=== PATIENT | male | born 1940 | race Caucasian/White ===

== ENCOUNTER → 2016-05-18 | Outpatient (CLI) | payer OTHER | END | disposition home or self-care (01) | LOC: RAD 13:48 | PROVIDERS: ATTEND Urology | DX: N20.1 Calculus of ureter (principal) ==

== ENCOUNTER → 2016-05-20 | Outpatient (CLI) | payer OTHER ==
--- NOTE | 2016-05-20 16:54 | RAD ---
EXAM DESCRIPTION: FL INTRAVENOUS PYELOGRAM (IVP) CLINICAL HISTORY: 75 y/o M, N20.1, CALCULUS OF URETER COMPARISON: None. FINDINGS: The servicenow administrator developer image shows several small left renal calculi, largest measuring approximately 9 mm diameter in the inferior pole. There are multiple small pelvic calcifications which probably represent phleboliths. Following IV contrast administration, bilaterally symmetric nephrograms are noted. The kidneys are of normal size, contour and alignment. Bilateral renal contrast excretion is noted without collecting system dilation or filling defect. All of the pelvic calcifications are outside of the distal ureters. No ureteral stricture is seen. No bladder filling defect is identified. A postvoid image shows a small amount of residual postvoid contrast in the bladder. IMPRESSION: Left-sided nephrolithiasis, but no ureterolithiasis or hydroureteronephrosis. Electronically signed by: Dov Bliss DO 05/20/2016 16:52
== END | disposition home or self-care (01) ==
LOC: RAD 08:41
PROVIDERS: ATTEND Urology
DX: N20.1 Calculus of ureter (principal)

== ENCOUNTER → 2016-12-01 | Outpatient (CLI) | payer OTHER ==
--- NOTE | 2016-12-02 09:29 | CT ---
EXAM DESCRIPTION: Abdoment/Pelvis w/o Contrast CLINICAL HISTORY: CALCULUS OF KIDNEY COMPARISON: March 29, 2016 TECHNIQUE: Noncontrast transaxial CT images of the abdomen and pelvis are obtained using renal stone imaging protocol. This exam was performed according to our departmental dose-optimization program, which includes automated exposure control, adjustment of the mA and/or kV according to patient size and/or use of iterative reconstruction technique . FINDINGS: Visualized lung bases shows enlarged heart with sternotomy wires are identified. Enlarged liver with diffuse fatty infiltration is again seen. Extensive cholelithiasis is seen without evidence of biliary tract obstruction. Noncontrast appearance of the spleen, pancreas, and adrenal glands is unremarkable. Moderate atherosclerotic disease is seen. There is a stable 2.1 cm hyperdense lesion on the anterior mid to upper pole cortex of the right kidney. Fluid attenuation cortical cyst of the lower pole left kidney measuring 2.7 cm is seen. Posterior mid pole fluid attenuation 2.2 cm cyst of the left kidney is seen. Nonobstructing 2 to 3 mm calcification of a posterior mid pole calyx of the right kidney is not seen on previous exam. No right ureteral calcification or obstruction. Multiple nonobstructing calcifications of the calyces in the left kidney are seen. The largest in the major calyx of the mid to lower pole measures 10 mm stable from previous. No ureteral calcification or obstruction is seen. Urinary bladder is contracted and not well evaluated. Prostate calcifications are seen. The appendix is not well identified. No small bowel obstruction is seen. Mild scattered diverticuli of the descending to sigmoid colon are seen without associated inflammatory changes or fluid collections. Small bilateral fat-containing inguinal hernias are seen. Osseous structures show no aggressive bony lesions. Hypertrophic bridging marginal endplate osteophytes over multiple level suggesting diffuse idiopathic skeletal hyperostosis. Moderate to severe degenerative changes of the spine are seen. IMPRESSION: Nonobstructing left greater than right nephrolithiasis is again seen. There has been interval resolution of the right distal ureteral calcification seen on previous exam. Simple renal cortical cysts with probable complex hyperdense lesion of the right kidney is unchanged from previous exam. Colon diverticulosis without CT evidence of diverticulitis. Extensive cholelithiasis is seen. Other findings as described in body of the report. Electronically signed by: Madhu Norris MD 12/02/2016 9:27 AM CDT
== END | disposition home or self-care (01) ==
LOC: CT 08:55
PROVIDERS: ATTEND Urology
DX: M24.9 Joint derangement, unspecified (principal); N20.0 Calculus of kidney

== ENCOUNTER 2016-12-21 06:43 | Emergency (ER) | payer OTHER ==
[2016-12-21] MEDS ORDERED: KETOROLAC TROMETHAMINE INJ 30 MG/ML VIAL IV ONE (07:05)
[2016-12-21] MEDS ORDERED: SODIUM CHLORIDE 0.9% 1000ML 1,000 ML IVS ONE ×2 (07:05→08:21)
--- NOTE | 2016-12-21 07:08 | ED.PDOC ---
History of Present Illness - General Chief Complaint: Back Pain or Injury Stated Complaint: low back pain Time Seen by Provider: 12/21/16 07:00 Source: patient, RN notes reviewed, Vital Signs reviewed, family - son, old records - 12/01/16 Abd/Pelvis CT: multiple non-obstructing renal stones L>R Exam Limitations: no limitations - History of Present Illness Initial Comments: Patient comes in with c/o of left flank pain that started yesterday. No radiation of pain. + urinary frequency and dysuria. No fever or chills. No nausea/vomiting or diarrhea. Recently seen for a kidney stone on the right. Taking Tylenol #3 w/o relief. Timing/Duration: 7-24 hours Quality/Severity: severe, dullness, sharpness Back Pain Location: other - L flank Back Pain Radiation: other - None Method of Injury/Prior Injury: unknown Improving Factors: nothing Worsening Factors: movement - any movement but also can't get comfortable Associated Symptoms: denies symptoms Allergies/Adverse Reactions: Allergies NO KNOWN ALLERGY Allergy (Verified 02/06/16 18:50) Home Medications: Ambulatory Orders Aspirin [Aspirin Adult Low Dose] 81 mg PO DAILY 02/06/16 Gabapentin [Neurontin] 900 mg PO TID 02/06/16 Metoprolol Tartrate [Lopressor] 25 mg PO BID 02/06/16 Potassium Chloride [K-Tab] 10 meq PO TID 02/06/16 Tamsulosin [Flomax] 0.4 mg PO BEDTIME #20 cap 02/06/16 Tramadol HCl [Ultram] 50 mg PO QID PRN #20 tab 02/06/16 Review of Systems - Review of Systems Constitutional: States: no symptoms reported. Denies: chills, diaphoresis, fever EENTM: States: no symptoms reported Respiratory: States: no symptoms reported. Denies: cough, short of breath Cardiology: Denies: no symptoms reported Gastrointestinal/Abdominal: States: see HPI - L flank pain. Denies: constipation, diarrhea, nausea, vomiting Genitourinary: States: see HPI, dysuria, frequency, pain - L flank Musculoskeletal: States: see HPI, back pain Skin: States: see HPI Neurological: States: no symptoms reported All other Systems: No Change from Baseline Past Medical History (General) - Patient Medical History Hx Seizures: No Hx Stroke: No Hx Asthma: No Hx of COPD: No Hx Cardiac Disorders: Yes - IN Hx Congestive Heart Failure: No Hx Pacemaker: No Hx Hypertension: Yes Hx Diabetes: No Hx Renal Disease: Yes - stones, prostate CA Hx Cancer: Yes - Prostate CA with tx Hx Hepatitis C: No Hx MRSA: No Surgical History: other - Vaccination History Hx Tetanus, Diphtheria Vaccination: No Hx Influenza Vaccination: No Hx Pneumococcal Vaccination: No - Social History Hx Tobacco Use: No Hx Alcohol Use: No Hx Substance Use: No Hx Substance Use Treatment: No Hx Depression: No Hx Physical Abuse: No Hx Emotional Abuse: No - Female History Patient : No Family Medical History - Family History Mother Family History: No Known Age (years): 78 Cause of : heart attack Hx Family Asthma: No Hx Family Congestive Heart Failure: Yes Hx Family Hypertension: No Hx Family Stroke: No Hx Cardiac Disease: Yes Hx Family Diabetes: No Hx Family Cancer: No Physical Exam - Physical Exam General Appearance: Alert, No apparent distress, Well Developed, Well Groomed, Well Hydrated, Well Nourished, Other - in pain Neck Exam: non-tender, full range of motion, normal alignment, normal inspection Cardiovascular/Respiratory: regular rate, rhythm, no M/R/G, normal breath sounds , no respiratory distress Gastrointestinal/Abdominal: normal bowel sounds, soft, no organomegaly, tenderness - LUQ and L mid abdomen w/o guarding or rebound Back Exam: CVA tenderness (L) Extremity Exam: no evidence of injury Neurologic: alert, normal mood/affect, oriented x 3 Skin Exam: normal color, warm/dry Comments: Vital Signs 12/21/16 12/21/16 06:56 07:01 Temperature 98.1 F Pulse Rate [ 51 L left] Respiratory 18 18 Rate Blood Pressure 184/82 [left] O2 Sat by Pulse 93 L Oximetry Progress - Progress Progress: 12/21/16 09:07 Patient pain free after Toradol 30mg IV and Dilaudid 1mg IV 2L NS bolus given Patient just had a CT scan on 12/02/15 that showed renal stones. Now has symptoms consistent with a ureteral stone with hematuria. Will treat as kidney stone instead of getting another CT scan. Patient is agreeable with plan. Has pain medicine at home so will d/c home with urine strainer and instructions to increase his water intake and follow up with PCP or Urologist is stone does not pass w/in 1 week or if symptoms worsen. - Results/Orders Results/Orders: Laboratory Tests 12/21/16 12/21/16 12/21/16 07:15 07:15 07:53 WBC 9.7 RBC 6.01 Hgb 18.2 H Hct 55.0 H MCV 91.4 MCH 30.2 MCHC 33.1 RDW 14.7 H Plt Count 99 L MPV 8.7 Absolute Neuts (auto) 7.90 H Absolute Lymphs (auto) 1.00 Absolute Monos (auto) 0.80 Absolute Eos (auto) 0.10 Absolute Basos (auto) 0.10 Neutrophils % 81.2 H Lymphocytes % 9.9 L Monocytes % 7.8 Eosinophils % 0.6 L Basophils % 0.5 Sodium 137 Potassium 4.5 Chloride 105 Carbon Dioxide 24 Anion Gap 12.5 BUN 30 H Creatinine 1.34 H BUN/Creatinine Ratio 22.4 H Random Glucose 121 H Serum Osmolality 281.3 Calcium 8.7 Total Bilirubin 1.2 H AST 32 ALT 24 Alkaline Phosphatase 59 Serum Total Protein 7.6 Albumin 4.0 Globulin 3.6 H Albumin/Globulin Ratio 1.1 Urine Color Yellow Urine Appearance Clear Urine pH 5.5 Ur Specific Powell 1.025 Urine Protein Trace Urine Glucose (UA) Negative Urine Ketones Negative Urine Blood Large H Urine Nitrite Negative Urine Bilirubin Negative Urine Urobilinogen 0.2 Ur Leukocyte Esterase Negative Urine RBC 10-20 H Urine WBC 0-1 Ur Epithelial Cells 0-1 Urine Bacteria Rare Creatinine is not significantly changed from prior labs done in 2016 Departure - Departure Clinical Impression: Renal colic on left side, Bilateral kidney stones Time of Disposition: 09:11 Disposition: Discharge to Home or Self Care Condition: Fair Departure Forms: ED Discharge - Pt. Copy, Patient Portal Self Enrollment Instructions: DI for Low Back Pain Diet: resume usual diet, other - Increase fluid intake Activity: increase activity as tolerated Referrals: Eddie Meadows MD [Primary Care Provider] - 1 Week Home Medications: Ambulatory Orders Aspirin [Aspirin Adult Low Dose] 81 mg PO DAILY 02/06/16 Gabapentin [Neurontin] 900 mg PO TID 02/06/16 Metoprolol Tartrate [Lopressor] 25 mg PO BID 02/06/16 Potassium Chloride [K-Tab] 10 meq PO TID 02/06/16 Tamsulosin [Flomax] 0.4 mg PO BEDTIME #20 cap 02/06/16 Tramadol HCl [Ultram] 50 mg PO QID PRN #20 tab 02/06/16 Additional Instructions: Use pain medication as needed Significantly increase water intake Strain urine to watch for stone. If no stone passed in 1 week or if new or worsening symptoms follow up with PCP or Urologist.
[2016-12-21] MEDS ORDERED: ONDANSETRON INJ 4 MG/2 ML VIAL IV ONE (07:36)
[2016-12-21] MEDS ORDERED: HYDROmorphone HCL INJ 2 MG/ML VIAL IV ONE (07:36)
[2016-12-21 09:35] VITALS: BP 143/80; TEMP 96.8; O2SAT 96
== END 2016-12-21 09:33 | disposition home or self-care (01) ==
LOC: ER 06:43
DX: N20.0 Calculus of kidney (principal); I25.2 Old myocardial infarction; I10 Essential (primary) hypertension; Z85.46 Personal history of malignant neoplasm of prostate; Z79.82 Long term (current) use of aspirin; Z79.899 Other long term (current) drug therapy
CPT/HCPCS: 36415; 80053; 81001; 85025; J1170; J1885; J2405; J7030

== ENCOUNTER 2016-12-21 21:38 | Emergency (ER) | payer OTHER ==
[2016-12-21] MEDS ORDERED: SODIUM CHLORIDE 0.9% 1000ML 1,000 ML IVS ONE (21:57)
[2016-12-21] MEDS ORDERED: ONDANSETRON INJ 4 MG/2 ML VIAL IV ONE (21:57)
[2016-12-21] MEDS ORDERED: HYDROmorphone HCL INJ 2 MG/ML VIAL IV ONE (21:57)
--- NOTE | 2016-12-21 22:01 | ED.PDOC ---
History of Present Illness - General Chief Complaint: Back Pain or Injury Stated Complaint: left sided back pain Time Seen by Provider: 12/21/16 21:40 Source: patient, RN notes reviewed, Vital Signs reviewed Exam Limitations: no limitations - History of Present Illness Initial Comments: Patient returns to ER with L flank and LLQ pain that is not being controlled with the Tylenol #3 @ home. He was seen here ~ 14 hours ago for same symptoms. Timing/Duration: 24 hours Quality/Severity: severe, sharpness Back Pain Location: other - L flank Back Pain Radiation: other - LLQ of abd. Method of Injury/Prior Injury: unknown Improving Factors: medication Worsening Factors: nothing Associated Symptoms: denies symptoms Allergies/Adverse Reactions: Allergies NO KNOWN ALLERGY Allergy (Verified 12/21/16 21:59) Home Medications: Ambulatory Orders Aspirin [Aspirin Adult Low Dose] 81 mg PO DAILY 02/06/16 Gabapentin [Neurontin] 900 mg PO TID 02/06/16 Metoprolol Tartrate [Lopressor] 25 mg PO BID 02/06/16 Potassium Chloride [K-Tab] 10 meq PO TID 02/06/16 Tamsulosin [Flomax] 0.4 mg PO BEDTIME #20 cap 02/06/16 Tramadol HCl [Ultram] 50 mg PO QID PRN #20 tab 02/06/16 Review of Systems - Review of Systems Constitutional: States: no symptoms reported. Denies: chills, fever, malaise Respiratory: States: no symptoms reported Cardiology: States: no symptoms reported Gastrointestinal/Abdominal: States: no symptoms reported Genitourinary: States: see HPI Musculoskeletal: States: back pain Skin: States: no symptoms reported Neurological: States: no symptoms reported All other Systems: No Change from Baseline Past Medical History (General) - Patient Medical History Hx Seizures: No Hx Stroke: No Hx Asthma: No Hx of COPD: No Hx Cardiac Disorders: Yes - [place] Hx Congestive Heart Failure: No Hx Pacemaker: No Hx Hypertension: Yes Hx Diabetes: No Hx Renal Disease: Yes - stones, prostate CA Hx Cancer: Yes - Prostate CA with tx Hx Hepatitis C: No Hx MRSA: No - Vaccination History Hx Tetanus, Diphtheria Vaccination: No Hx Influenza Vaccination: No Hx Pneumococcal Vaccination: No - Social History Hx Tobacco Use: No Hx Alcohol Use: No Hx Substance Use: No Hx Substance Use Treatment: No Hx Depression: No Hx Physical Abuse: No Hx Emotional Abuse: No - Female History Patient : No Family Medical History - Family History Mother Family History: No Known Age (years): 78 Cause of : heart attack Hx Family Asthma: No Hx Family Congestive Heart Failure: Yes Hx Family Hypertension: No Hx Family Stroke: No Hx Cardiac Disease: Yes Hx Family Diabetes: No Hx Family Cancer: No Physical Exam - Physical Exam General Appearance: Alert, No apparent distress, Well Developed, Well Groomed, Well Hydrated, Well Nourished, Other - In obvious pain Neck Exam: normal inspection Cardiovascular/Respiratory: regular rate, rhythm, no M/R/G, normal breath sounds , no respiratory distress Gastrointestinal/Abdominal: normal bowel sounds, soft, no organomegaly, tenderness - LLQ and suprapubic Back Exam: CVA tenderness (L) Extremity Exam: normal range of motion Neurologic: alert, normal mood/affect, oriented x 3 Skin Exam: normal color, warm/dry Progress - Results/Orders Results/Orders: Laboratory Tests 12/21/16 22:09 Sodium 138 Potassium 4.2 Chloride 107 Carbon Dioxide 24 Anion Gap 11.2 L BUN 34 H Creatinine 1.70 H BUN/Creatinine Ratio 20.0 Random Glucose 100 Serum Osmolality 283.4 Calcium 8.9 - EKG/XRAY/CT CT Ordered: Yes - 8mm obstructing L UPJ stone w/ mild hydroneph per Rad Departure - Departure Clinical Impression: Hydronephrosis with urinary obstruction due to renal calculus, Calculus of left kidney Time of Disposition: 23:27 Disposition: Transfer to Hospital Condition: Good Departure Forms: ED Discharge - Pt. Copy, Patient Portal Self Enrollment Referrals: Eddie Meadows MD [Primary Care Provider] - 1-2 Weeks Home Medications: Ambulatory Orders Aspirin [Aspirin Adult Low Dose] 81 mg PO DAILY 02/06/16 Gabapentin [Neurontin] 900 mg PO TID 02/06/16 Metoprolol Tartrate [Lopressor] 25 mg PO BID 02/06/16 Potassium Chloride [K-Tab] 10 meq PO TID 02/06/16 Tamsulosin [Flomax] 0.4 mg PO BEDTIME #20 cap 02/06/16 Tramadol HCl [Ultram] 50 mg PO QID PRN #20 tab 02/06/16 Transfer to Outside Facility - Transfer Information Accepting Provider:: Dr. Petersen Accepting Facility: [facility] Reason for Transfer: required specialist not available - Urologist
--- NOTE | 2016-12-21 22:53 | CT ---
EXAM DESCRIPTION: Abdoment/Pelvis w/o Contrast CLINICAL HISTORY: 76 years Male, L flank pain/hematuria/Renal protocol COMPARISON: 12/01/2016 TECHNIQUE: Contiguous axial CT images of the abdomen and pelvis were acquired without administration of intravenous contrast. Coronal and sagittal reformatted images are provided. This exam was performed according to our departmental dose-optimization program which includes use of Automated Exposure Control, adjustment of the mA and/or kV according to patient size and/or use of iterative reconstruction technique. FINDINGS: Chest base: Coronary artery calcifications. Small hiatal hernia. Liver: Unremarkable. Gallbladder: Cholelithiasis. Spleen: Unremarkable. Adrenals: Unremarkable. Pancreas: Unremarkable. Right Kidney: Stable hypoattenuation lesion within the right upper pole measuring 1.8 cm. No renal stones or hydronephrosis. Left Kidney: 8 mm obstructing stone within the left UPJ resulting in mild left hydronephrosis. Stable left lower pole renal cyst. At least two subcentimeter nonobstructing stones are seen in the left renal pelvis. Aorta and branch vessels: Advanced calcific atherosclerosis of the aortoiliac vessels. Lymph nodes: No lymphadenopathy. Bowels: No obstruction. Colon: Scattered colonic diverticula. Appendix: Not identified Peritoneum: A small amount of edema is seen along the left iliac vessels. Pelvic organs: Unremarkable. Bladder: Unremarkable. Bones and soft tissues: No acute osseous or soft tissue abnormalities. Fat-containing bilateral inguinal hernias. Post surgical changes of L4-L5 decompression. Grade 1 anterolisthesis L4 on L5. IMPRESSION: 8 mm obstructing left UPJ stone with mild left hydronephrosis. Mild edema along the left iliac arteries, adjacent to the left ureter, is likely secondary to the above process. Subcentimeter left nephrolithiasis. Stable right upper pole hyperdense lesion. Cholelithiasis. Electronically signed by: Eddie Jennings MD 12/21/2016 10:51 PM CDT
[2016-12-21 23:44] VITALS: O2SAT 94
[2016-12-22 00:08] VITALS: BP 166/90; TEMP 97.6
== END 2016-12-22 00:08 | disposition short-term general hospital (02) ==
LOC: ER 21:38
DX: N13.2 Hydronephrosis with renal and ureteral calculous obstruction (principal); I25.2 Old myocardial infarction; I10 Essential (primary) hypertension; Z85.46 Personal history of malignant neoplasm of prostate; Z79.82 Long term (current) use of aspirin; Z79.899 Other long term (current) drug therapy
CPT/HCPCS: 36415; 74176; 80048; J1170; J2405; J7030

== ENCOUNTER → 2017-01-17 | Outpatient (CLI) | payer OTHER ==
--- NOTE | 2017-01-18 14:58 | MRI ---
EXAM DESCRIPTION: Lumbar Spine w/o Contrast CLINICAL HISTORY: 76 years, Male, SPONDYLARTHRITIS right-sided low back pain COMPARISON: FINDINGS: Sagittal and axial sequences. There is some increased T1 signal in T12 which is probably a benign hemangioma. T12 also shows chronic mild anterior compression. On patient's history sheet, patient says he has not had previous back surgery. There appear to be laminectomy postsurgical changes L4 and L5. Mild bulging disc in sagittal sequences at T11-12. Conus terminates at L1. Several benign-appearing left renal cysts noted. L1-2 disc space slightly narrowed but otherwise unremarkable. At L2-3 slight narrowing and mild facet degenerative change but no significant stenosis. At L3-4 mild narrowing with diffuse bulging disc asymmetric to the right. Facet degenerative change. Slight bilateral, more on the right, foraminal narrowing and lateral recess encroachment. At L4-5, narrowing with about 6.5 mm of anterolisthesis. Bilateral pars defects versus postsurgical change. Bulging disc extends adjacent foramen bilaterally more on the right. Impingement on the exiting right L4 root. L5-S1 tiny focal central protrusion and mild facet degenerative change. Laminectomy changes at this level IMPRESSION: 1. Anterolisthesis L4-5 with postsurgical change. Bulging disc extends into the exit foramen bilaterally. Impingement on the exiting right L4 root. 2. Bulging disc L3-4 asymmetric to the right. Bilateral, more on the right, foraminal narrowing and lateral recess encroachment 3. Other mild disc changes present as discussed Electronically signed by: Angel Mcelroy MD 01/18/2017 2:57 PM CDT
== END | disposition home or self-care (01) ==
LOC: MRI 13:21
PROVIDERS: ATTEND Family Medicine
DX: M47.817 Spondylosis without myelopathy or radiculopathy, lumbosacral region (principal)

== ENCOUNTER → 2017-02-20 | Outpatient (CLI) | payer OTHER | END | disposition home or self-care (01) | LOC: YCFC.O 09:33 | PROVIDERS: ATTEND Anesthesiology Pain Medicine | DX: Z79.891 Long term (current) use of opiate analgesic (principal) ==

== ENCOUNTER 2017-03-20 05:42 | Day surgery (SDC) | payer OTHER ==
[2017-03-20] MEDS ORDERED: SODIUM BICARBONATE VIAL 50 MEQ/50 ML VIAL ONE (11:21)
[2017-03-20] MEDS ORDERED: methylPREDNISolone ACETATE 80 MG/ML VIAL ONE (11:22)
[2017-03-20] MEDS ORDERED: BUPIVACAINE 0.25% INJ 30 ML VIAL INJ ONE (11:22)
[2017-03-20] MEDS ORDERED: LIDOCAINE 1% MPF 5 ML VIAL ONE (11:22)
[2017-03-20] MEDS ORDERED: SODIUM CHLORIDE 0.9% 10 ML VIAL ONE (11:22)
[2017-03-20 13:41] VITALS: BP 183/103; TEMP 97.3; O2SAT 97
== END 2017-03-20 13:30 | disposition home or self-care (01) ==
LOC: AMB 05:42
PROVIDERS: ATTEND Anesthesiology Pain Medicine
DX: M46.96 Unspecified inflammatory spondylopathy, lumbar region (principal); M54.5 Low back pain; M51.36 Other intervertebral disc degeneration, lumbar region; M51.26 Other intervertebral disc displacement, lumbar region; I10 Essential (primary) hypertension; Z87.891 Personal history of nicotine dependence; Z79.82 Long term (current) use of aspirin; Z79.899 Other long term (current) drug therapy
CPT/HCPCS: 64493; 76000; J1030

== ENCOUNTER → 2017-08-09 | Outpatient (CLI) | payer OTHER | LOC: GMAJ 16:35 | PROVIDERS: ATTEND Family Medicine | DX: R41.81 Age-related cognitive decline (principal); I10 Essential (primary) hypertension; Z79.899 Other long term (current) drug therapy ==

== ENCOUNTER → 2017-08-16 | Outpatient (CLI) | payer OTHER ==
--- NOTE | 2017-08-16 16:53 | MRI ---
EXAM DESCRIPTION: Brain w/o Contrast: MRI. CLINICAL HISTORY: MEMORY LOSS COMPARISON: CT scan of the head without contrast 01/10/2013. TECHNIQUE: Multiplanar, high-field MRI unit, multiple diffusion sequences, multiple conventional sequences without contrast. FINDINGS: Multifocal bilateral hyperintense FLAIR and T2-weighted signal in the periventricular white matter and kim-white matter junctions of the cerebral hemispheres. . Similar signal in the bilateral superior basal ganglia, more left than right. No hemorrhage, no cerebral edema, no mass-effect. Normal signal in the brainstem and cerebellar hemispheres. No hemorrhage, no cerebral edema, no mass-effect. Concordance of the diffusion and non-diffusion sequences with no diffusion restriction. Cortical sulci, ventricles, and other CSF spaces, and the subdural spaces are normally configured for patients age. No effacement or displacement. No midline shift. No extra-axial hemorrhage. Normal flow signal void in the major vessels of the ute Marquez, and the venous sinuses. IACs are symmetric bilaterally. Normal signal in the bilateral mastoid air cells. No mass effect in the bilateral cerebellopontine angles. Pituitary gland occupies only the base of the sella, predominantly occupied by CSF. Base of the cerebellar tonsils is above the foramen magnum. Mucoperiosteal thickening in the bilateral ethmoid air cells of the paranasal sinuses. Focal 1 cm lesion in the right middle turbinate. The bony calvarium is intact. IMPRESSION: 1. Diffuse bilateral hyperintensities in the periventricular white matter and subcortical white matter with other age-related changes of the brain. This is most likely related to cerebral microvascular disease. No intra-axial extra-axial hemorrhage, no mass effect cerebral edema or midline shift. 2. Chronic paranasal sinusitis with possible lesion in the right nasal passageway. Consider follow-up CT scan of the sinuses without IV contrast. Electronically signed by: Car Quezada MD 08/16/2017 4:52 PM CDT
== END ==
LOC: MRI 13:56
PROVIDERS: ATTEND Family Medicine
DX: R41.81 Age-related cognitive decline (principal); J32.9 Chronic sinusitis, unspecified

== ENCOUNTER 2017-09-02 07:18 | Emergency (ER) | payer OTHER ==
--- NOTE | 2017-09-02 07:50 | ED.PDOC ---
History of Present Illness - General Chief Complaint: Skin/Abrasion/Tear Stated Complaint: Skin irritation L groin Time Seen by Provider: 09/02/17 07:38 Source: patient Exam Limitations: no limitations - History of Present Illness Initial Comments: Som Fajardo 76 y/o male stated that he noticed skin irritation -redness/ tenderness left groin unknown duration stated felt just pain last night and placed some ointment.No fever,/chills. Timing/Duration: other - see hpi Severity: moderate Location: torso - left groin Improving Factors: nothing Worsening Factors: movement Associated Symptoms: rash Allergies/Adverse Reactions: Allergies NO KNOWN ALLERGY Allergy (Verified 09/02/17 07:55) Home Medications: Ambulatory Orders Aspirin [Aspirin Adult Low Dose] 81 mg PO DAILY 02/06/16 Gabapentin [Neurontin] 900 mg PO TID 02/06/16 Tamsulosin [Flomax] 0.4 mg PO BEDTIME #20 cap 02/06/16 Acetamin W/Cod #3 Tab [Tylenol w/CODEINE #3] 1 ea PO TID PRN #14 tab 09/02/17 Atorvastatin Calcium [Lipitor] 40 mg PO BEDTIME 09/02/17 Cephalexin 1,000 mg PO BID 7 Days #30 cap 09/02/17 Clopidogrel Bisulfate [Plavix] 75 mg PO DAILY 09/02/17 Lisinopril [Prinivil] 10 mg PO DAILY 09/02/17 Terbinafine HCl [Lamisil] 250 mg PO DAILY 14 Days #14 tab 09/02/17 Triamcinolone 0.1% Oint [Kenalog 0.1% Ointment] 45 gm TOP BID #1 tube 09/02/17 Review of Systems - Review of Systems Constitutional: States: no symptoms reported EENTM: States: no symptoms reported Cardiology: States: no symptoms reported Gastrointestinal/Abdominal: States: no symptoms reported Neurological: States: see HPI Past Medical History (General) - Patient Medical History Hx Seizures: No Hx Stroke: No Hx Dementia: No Hx Asthma: No Hx of COPD: No Hx Cardiac Disorders: Yes - [place] Hx Congestive Heart Failure: No Hx Pacemaker: No Hx Hypertension: Yes Hx Thyroid Disease: No Hx Diabetes: No Hx Gastroesophageal Reflux: No Hx Renal Disease: Yes - stones, prostate CA Hx Cancer: Yes - Prostate CA with tx Hx of HIV: No Hx Hepatitis C: No Hx MRSA: No Surgical History: other - cardiac stent - Vaccination History Hx Tetanus, Diphtheria Vaccination: No Hx Influenza Vaccination: No Hx Pneumococcal Vaccination: No - Social History Hx Tobacco Use: No Hx Chewing Tobacco Use: No Hx Alcohol Use: No Hx Substance Use: No Hx Substance Use Treatment: No Hx Depression: No Hx Physical Abuse: No Hx Emotional Abuse: No Hx Suspected Abuse: No - Female History Patient : No Family Medical History - Family History Mother Family History: No Known Age (years): 78 Cause of : heart attack Hx Family Asthma: No Hx Family Congestive Heart Failure: Yes Hx Family Hypertension: No Hx Family Stroke: No Hx Cardiac Disease: Yes Hx Family Diabetes: No Hx Family Cancer: No Physical Exam - Physical Exam General Appearance: Alert, Comfortable, No apparent distress Eyes, Ears, Nose, Throat Exam: normal ENT inspection Neck: full range of motion, supple Cardiovascular/Chest: normal peripheral pulses, regular rate, rhythm, no murmur Respiratory: lungs clear, normal breath sounds Gastrointestinal/Abdominal: non tender, soft, other - genitalia -uncrcumcised, both testes scrotal Extremity: no pedal edema, no calf tenderness Neurologic: no motor/sensory deficits, alert, oriented x 3 Skin Exam: warm/dry, normal color Skin Problem Location: other - left groin Skin Character: erythema - right groin, tenderness, thickening Lymphatic: no adenopathy Progress - Progress Progress: 09/02/17 09:27 Vital Signs - 8 hr 09/02/17 09/02/17 09/02/17 07:34 08:37 09:18 Temperature 97.5 F L Pulse Rate [ 83 80 74 Left Radial] Respiratory 18 16 16 Rate Blood Pressure 173/106 145/88 146/74 [Left Arm] O2 Sat by Pulse 96 96 96 Oximetry - Results/Orders Results/Orders: 09/02/17 07:52 IV Care:Saline Lock per Protoc QSHIFT 09/02/17 08:01 Hold Metformin x 48Hrs [id number] 09/02/17 08:02 Hold Metformin x 48Hrs [id number] 09/02/17 08:54 URINALYSIS Stat Laboratory Results - last 24 hr 09/02/17 09/02/17 09/02/17 08:07 08:07 08:07 WBC 8.5 RBC 5.87 Hgb 17.5 Hct 51.9 MCV 88.4 MCH 29.8 MCHC 33.8 RDW 14.0 Plt Count 111 L MPV 8.3 Absolute Neuts (auto) 6.90 H Absolute Lymphs (auto) 0.90 L Absolute Monos (auto) 0.50 Absolute Eos (auto) 0.10 Absolute Basos (auto) 0.10 Neutrophils % 81.2 H Lymphocytes % 10.2 L Monocytes % 6.3 Eosinophils % 1.4 Basophils % 0.9 Sodium 138 Potassium 3.4 L Chloride 99 L Carbon Dioxide 30 Anion Gap 12.4 BUN 24 H Creatinine 1.09 BUN/Creatinine Ratio 22.0 H Random Glucose 115 H Serum Osmolality 280.6 Lactic Acid 1.6 Calcium 9.2 Total Bilirubin 1.5 H AST 23 ALT 19 Alkaline Phosphatase 72 Serum Total Protein 7.9 Albumin 4.1 Globulin 3.8 H Albumin/Globulin Ratio 1.1 - EKG/XRAY/CT CT Ordered: Yes - pelvis -no abscess perirectal/perianal;simon.hydrocele;inguinal hernia Departure - Departure Clinical Impression: Cellulitis of groin, left Dermatitis, eczematoid Qualifiers: Eczema type: flexural Qualified Code(s): 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 Copy, Patient Portal Self Enrollment Instructions: DI for Wound Infection, Contact Dermatitis, Eczema Referrals: Eddie Meadows MD [Primary Care Provider] - 1-2 Weeks Prescriptions: Acetamin W/Cod #3 Tab [Tylenol w/CODEINE #3] 1 ea PO TID PRN #14 tab PRN Reason: Pain Cephalexin 1,000 mg PO BID 7 Days #30 cap Terbinafine HCl [Lamisil] 250 mg PO DAILY 14 Days #14 tab Triamcinolone 0.1% Oint [Kenalog 0.1% Ointment] 45 gm TOP BID #1 tube Home Medications: Ambulatory Orders Aspirin [Aspirin Adult Low Dose] 81 mg PO DAILY 02/06/16 Gabapentin [Neurontin] 900 mg PO TID 02/06/16 Tamsulosin [Flomax] 0.4 mg PO BEDTIME #20 cap 02/06/16 Acetamin W/Cod #3 Tab [Tylenol w/CODEINE #3] 1 ea PO TID PRN #14 tab 09/02/17 Atorvastatin Calcium [Lipitor] 40 mg PO BEDTIME 09/02/17 Cephalexin 1,000 mg PO BID 7 Days #30 cap 09/02/17 Clopidogrel Bisulfate [Plavix] 75 mg PO DAILY 09/02/17 Lisinopril [Prinivil] 10 mg PO DAILY 09/02/17 Terbinafine HCl [Lamisil] 250 mg PO DAILY 14 Days #14 tab 09/02/17 Triamcinolone 0.1% Oint [Kenalog 0.1% Ointment] 45 gm TOP BID #1 tube 09/02/17 Additional Instructions: Follow up with primary Md 06 Sep 2017;Return to ER if Symptoms worsens
[2017-09-02] MEDS ORDERED: TETANUS,DIPHTHERIA,PERTUSSIS 1 EA SYG IM ONE (07:52)
[2017-09-02] MEDS ORDERED: PROMETHAZINE HCL INJ 25 MG/ML VIAL IM ONE (07:55)
[2017-09-02] MEDS ORDERED: MORPHINE SULFATE INJ 10 MG/ML VIAL IV ONE (07:55)
--- NOTE | 2017-09-02 09:21 | CT ---
PROCEDURE: Pelvis w/Contrast Clinical History: swelling groin Indication: Same as above Comparison: None Technique: CT of the pelvis was done with intravenous contrast in the axial, sagittal and coronal planes. No oral contrast was given for the study. This exam was performed according to our departmental dose-optimization program, which includes automated exposure control, adjustment of the mA and/or KV according to the patient's size and/or use of iterative reconstruction technique. Findings: There is presence of small bilateral fat containing inguinal hernias and presence of bilateral hydroceles. Atherosclerotic calcifications involving the visualized lower abdominal aorta, iliac vessels and the bilateral thigh vessels are seen. There is no free fluid in the pelvis. The prostate is minimally enlarged. The visualized bowel loops are unremarkable, except presence of mild constipation. There is no pathological lymphadenopathy in the groin on either side. There is no visualization of any perirectal or perianal abscess Impression: There is presence of small bilateral fat containing inguinal hernias and presence of bilateral hydroceles. Location of Interpretation: [facility] Electronically signed by: Emmanuel Saravia MD 09/02/2017 9:19 AM CDT Workstation: [employer]
[2017-09-02] MEDS ORDERED: LIDOCAINE 2% 5 ML VIAL INJ ONE (09:27)
[2017-09-02] MEDS ORDERED: cefTRIAXone SODIUM 2 GM in SODIUM CHL 0.9% 100ML MINI-BAG 100 ML IVPB ONE (09:32)
[2017-09-02] MEDS ORDERED: SULFA/TRIMETH 800/160 (DS) TAB 1 EA TAB PO ONE (09:33)
[2017-09-02] MEDS ORDERED: SODIUM CHL 0.9% 100ML MINI-BAG 100 ML IVPB ONE (09:36)
[2017-09-02] MEDS ORDERED: LIDOCAINE 2 % GEL 5 ML TUBE TOP ONE (10:58)
--- NOTE | 2017-09-02 21:28 | ED.PDOC ---
History of Present Illness - General Chief Complaint: Neuro Symptoms/Deficits Stated Complaint: altered mental status Time Seen by Provider: 09/02/17 21:11 Source: patient Exam Limitations: no limitations - History of Present Illness Initial Comments: Som Fajardo 76 y/o male seen initially this morning with diagnosis of left groin cellulitis and work up done ct-pelvis ,cbc,chem panel ,lactic acid, urinalysis came back -WNL;was given iv antibiotics-rocephin and sent Rx- cephalexin,tebinafine,steroid cream.He was sent home stable. He got out of ER without assistance to his ride. Took medicine that was prescribed.Then about 5 pm today son noticed that he was hallucinating-stating bugs crawling on his body ,trying to start his pickup without weathers in the ignition,talking to himself and unable to move around stated keeps on falling.There was no dysarthria,but patient could not remember that he was here at ER this morning. Timing/Duration: 4-6 hours Severity: moderate Episode Description: see hpi Associated Symptoms: confusion Allergies/Adverse Reactions: Allergies NO KNOWN ALLERGY Allergy (Verified 09/02/17 07:55) Home Medications: Ambulatory Orders Aspirin [Aspirin Adult Low Dose] 81 mg PO DAILY 02/06/16 Gabapentin [Neurontin] 300 mg PO TID 02/06/16 Tamsulosin [Flomax] 0.4 mg PO BEDTIME #20 cap 02/06/16 Acetamin W/Cod #3 Tab [Tylenol w/CODEINE #3] 1 ea PO TID PRN #14 tab 09/02/17 Atorvastatin Calcium [Lipitor] 40 mg PO BEDTIME 09/02/17 Cephalexin 1,000 mg PO BID 7 Days #30 cap 09/02/17 Clopidogrel Bisulfate [Plavix] 75 mg PO DAILY 09/02/17 Lisinopril [Prinivil] 10 mg PO DAILY 09/02/17 Terbinafine HCl [Lamisil] 250 mg PO DAILY 14 Days #14 tab 09/02/17 Triamcinolone 0.1% Oint [Kenalog 0.1% Ointment] 45 gm TOP BID #1 tube 09/02/17 Review of Systems - Review of Systems Constitutional: States: no symptoms reported EENTM: States: no symptoms reported Respiratory: States: no symptoms reported Cardiology: States: no symptoms reported Gastrointestinal/Abdominal: States: no symptoms reported Genitourinary: States: no symptoms reported Musculoskeletal: States: no symptoms reported Skin: States: see HPI Neurological: States: see HPI All other Systems: Reviewed and Negative, No Change from Baseline Past Medical History (General) - Patient Medical History Hx Seizures: No Hx Stroke: No Hx Dementia: No Hx Asthma: No Hx of COPD: No Hx Cardiac Disorders: Yes - [place] Hx Congestive Heart Failure: No Hx Pacemaker: No Hx Hypertension: Yes Hx Thyroid Disease: No Hx Diabetes: No Hx Gastroesophageal Reflux: No Hx Renal Disease: Yes - stones, prostate CA Hx Cancer: Yes - Prostate CA with tx Hx of HIV: No Hx Hepatitis C: No Hx MRSA: No Surgical History: cancer surgery, other - prostate - Vaccination History Hx Tetanus, Diphtheria Vaccination: Yes Hx Influenza Vaccination: No Hx Pneumococcal Vaccination: No - Social History Hx Tobacco Use: No Hx Chewing Tobacco Use: No Hx Alcohol Use: No Hx Substance Use: No Hx Substance Use Treatment: No Hx Depression: No Hx Physical Abuse: No Hx Emotional Abuse: No Hx Suspected Abuse: No - Activities of Daily Living Patient Lives Alone: Yes - but brother lives nearby - Female History Patient : No Family Medical History - Family History Mother Family History: No Known Age (years): 78 Living Status: Cause of : heart attack Hx Family Asthma: No Hx Family Congestive Heart Failure: Yes Hx Family Hypertension: No Hx Family Stroke: No Hx Cardiac Disease: Yes Hx Family Diabetes: No Hx Family Cancer: No Physical Exam - Physical Exam General Appearance: Alert, Comfortable, No apparent distress Eye Exam: bilateral normal ENT Exam: normal ENT inspection, hearing grossly normal, pharynx normal Neck: supple, normal inspection, trachea midline Respiratory: lungs clear, normal breath sounds, no respiratory distress Cardiovascular/Chest: normal peripheral pulses, regular rate, rhythm, no gallop , no murmur Peripheral Pulses: radial,right: 2+, radial,left: 2+ Gastrointestinal/Abdominal: non tender, soft, no pulsatile mass Back Exam: no CVA tenderness, no vertebral tenderness Extremities Exam: non-tender, normal range of motion, no evidence of injury Mental Status: alert, disoriented x 3 industrial staff nurse Exam: normal hearing, normal speech, PERRL Coordination/Gait: normal finger to nose Motor/Sensory: no motor deficit, no sensory deficit, no pronator drift Skin Exam: normal color, warm/dry, rash - right groin discoid erythema Progress - Progress Progress: 09/02/17 21:48 Vital Signs - 8 hr 09/02/17 20:51 Temperature 100.3 F H Pulse Rate [ 84 monitor] Respiratory 16 Rate Blood Pressure 135/89 [Left Arm] O2 Sat by Pulse 93 L Oximetry - Results/Orders Results/Orders: Vital Signs - 8 hr 09/02/17 20:51 Temperature 100.3 F H Pulse Rate [ 84 monitor] Respiratory 16 Rate Blood Pressure 135/89 [Left Arm] O2 Sat by Pulse 93 L Oximetry 09/02/17 21:29 IV Care:Saline Lock per Protoc QSHIFT URINE DRUG SCREEN, 7 ASSAY Stat 09/02/17 21:30 EKG STAT Laboratory Results - last 24 hr 09/02/17 09/02/17 09/02/17 21:29 21:29 21:29 WBC 9.6 RBC 5.63 Hgb 16.7 Hct 49.8 MCV 88.5 MCH 29.7 MCHC 33.6 RDW 14.2 Plt Count 122 L MPV 8.2 Absolute Neuts (auto) 7.70 H Absolute Lymphs (auto) 1.10 Absolute Monos (auto) 0.80 Absolute Eos (auto) 0.00 Absolute Basos (auto) 0.10 Neutrophils % 79.8 H Lymphocytes % 11.0 L Monocytes % 8.3 Eosinophils % 0.3 L Basophils % 0.6 PT 13.0 H INR 1.120 PTT (SP) 30.9 Sodium 137 Potassium 3.7 Chloride 100 L Carbon Dioxide 28 Anion Gap 12.7 BUN 27 H Creatinine 1.26 BUN/Creatinine Ratio 21.4 H POC Glucose 105 Random Glucose 107 H Serum Osmolality 279.4 Lactic Acid 1.4 Calcium 9.4 Magnesium 1.8 Total Bilirubin 1.2 H Direct Bilirubin 0.2 Indirect Bilirubin 1.0 H AST 29 ALT 20 Alkaline Phosphatase 64 Creatine Kinase 502 H* CK-MB (CK-2) 2.5 CK-MB (CK-2) % Not Reportable Troponin I < 0.02 Serum Total Protein 7.7 Albumin 3.9 Urine Color Urine Appearance Urine pH Ur Specific [place] Urine Protein Urine Glucose (UA) Urine Ketones Urine Blood Urine Nitrite Urine Bilirubin Urine Urobilinogen Ur Leukocyte Esterase Urine RBC Urine WBC Ur Epithelial Cells Urine Bacteria 09/02/17 23:47 WBC RBC Hgb Hct MCV MCH MCHC RDW Plt Count MPV Absolute Neuts (auto) Absolute Lymphs (auto) Absolute Monos (auto) Absolute Eos (auto) Absolute Basos (auto) Neutrophils % Lymphocytes % Monocytes % Eosinophils % Basophils % PT INR PTT (SP) Sodium Potassium Chloride Carbon Dioxide Anion Gap BUN Creatinine BUN/Creatinine Ratio POC Glucose Random Glucose Serum Osmolality Lactic Acid Calcium Magnesium Total Bilirubin Direct Bilirubin Indirect Bilirubin AST ALT Alkaline Phosphatase Creatine Kinase CK-MB (CK-2) CK-MB (CK-2) % Troponin I Serum Total Protein Albumin Urine Color Yellow Urine Appearance Clear Urine pH 6.0 Ur Specific [place] 1.015 Urine Protein Negative Urine Glucose (UA) Negative Urine Ketones Trace Urine Blood Trace-intact H Urine Nitrite Negative Urine Bilirubin Negative Urine Urobilinogen 1.0 Ur Leukocyte Esterase Negative Urine RBC 5-10 H Urine WBC 3-5 H Ur Epithelial Cells 0-1 Urine Bacteria 0 - EKG/XRAY/CT EKG: Sinus, RBBB, nonspecific ST T wave Chg Comments: Hr-76 LAD old inferolateral mi CT Ordered: Yes - head no acute intracranial abnormalities Departure - Departure Clinical Impression: Weakness of both legs, Cellulitis of groin, left Altered mental status Qualifiers: Altered mental status type: disorientation Qualified Code(s): R41.0 - Disorientation, unspecified Time of Disposition: 00:49 Disposition: Transfer to Hospital Condition: Fair Departure Forms: Patient Portal Self Enrollment Referrals: Eddie Meadows MD [Primary Care Provider] - 1-2 Weeks Home Medications: Ambulatory Orders Aspirin [Aspirin Adult Low Dose] 81 mg PO DAILY 02/06/16 Gabapentin [Neurontin] 300 mg PO TID 02/06/16 Tamsulosin [Flomax] 0.4 mg PO BEDTIME #20 cap 02/06/16 Acetamin W/Cod #3 Tab [Tylenol w/CODEINE #3] 1 ea PO TID PRN #14 tab 09/02/17 Atorvastatin Calcium [Lipitor] 40 mg PO BEDTIME 09/02/17 Cephalexin 1,000 mg PO BID 7 Days #30 cap 09/02/17 Clopidogrel Bisulfate [Plavix] 75 mg PO DAILY 09/02/17 Lisinopril [Prinivil] 10 mg PO DAILY 09/02/17 Terbinafine HCl [Lamisil] 250 mg PO DAILY 14 Days #14 tab 09/02/17 Triamcinolone 0.1% Oint [Kenalog 0.1% Ointment] 45 gm TOP BID #1 tube 09/02/17 Transfer to Outside Facility - Transfer Information Accepting Provider:: Dr. Melissa Warner Hospitalist [facility] Reason for Transfer: required specialist not available - neurologist
[2017-09-02] MEDS ORDERED: SODIUM CHLORIDE 0.9% 500ML 500 ML IVS ONE (21:29)
--- NOTE | 2017-09-02 22:17 | RAD ---
EXAM DESCRIPTION: Chest,1 View CLINICAL HISTORY: ams COMPARISON: 06/16/2015 FINDINGS: Cardiac silhouette is within normal limits. There is no focal parenchymal or pleural disease. Visualized osseous structures are within normal limits. IMPRESSION: No evidence of acute cardiopulmonary disease. Electronically signed by: Car Rodriguez 09/02/2017 10:16 PM CDT
--- NOTE | 2017-09-02 22:19 | CT ---
EXAM DESCRIPTION: Head CLINICAL HISTORY: ams COMPARISON: None Available TECHNIQUE: Contiguous axial CT images of the head were obtained. Coronal and sagittal reconstructions were created from the axial data. This exam was performed according to our departmental dose-optimization program, which includes automated exposure control, adjustment of the mA and/or kV according to patient size and/or use of iterative reconstruction technique. FINDINGS: Poorly defined foci of decreased attenuation do not exert significant mass effect on surrounding structures and are likely sequela of prior insult, most likely on the basis of small vessel disease. There is no evidence of acute mass, mass effect, midline shift or hemorrhage. The ventricles and extra-axial CSF spaces are unremarkable. The brain parenchyma appears otherwise normal for the patient's age. No acute abnormalities of the bones is seen. IMPRESSION: No acute intracranial abnormality. Electronically signed by: Car Rodriguez 09/02/2017 10:18 PM CDT
[2017-09-03 00:39] VITALS: BP 167/80; TEMP 97.8; O2SAT 97
[2017-09-03] MEDS ORDERED: ASPIRIN (CHEWABLE) 81 MG TAB PO ONE (00:48)
== END 2017-09-02 11:25 | disposition home or self-care (01) ==
LOC: ER 07:18
DX: R41.0 Disorientation, unspecified (principal); M62.81 Muscle weakness (generalized); L03.314 Cellulitis of groin; I25.2 Old myocardial infarction; I10 Essential (primary) hypertension; I45.10 Unspecified right bundle-branch block; Z23 Encounter for immunization; Z85.46 Personal history of malignant neoplasm of prostate; Z79.82 Long term (current) use of aspirin; Z79.02 Long term (current) use of antithrombotics/antiplatelets; Z98.61 Coronary angioplasty status
CPT/HCPCS: 36415; 70450; 71045; 72193; 80048; 80053; 80076; 80307; 81001; 82550; 82553; 82948; 83605; 84484; 85025; 85610; 85730; 90471; 90715; 93005; J0696; J2270; J2550; J7040; J7050

== ENCOUNTER → 2018-09-17 | Outpatient (CLI) | payer OTHER | LOC: GMAJ 11:03 | PROVIDERS: ATTEND Family Medicine | DX: C61 Malignant neoplasm of prostate (principal); M10.9 Gout, unspecified; E78.2 Mixed hyperlipidemia; I10 Essential (primary) hypertension ==

== ENCOUNTER → 2019-01-15 | Outpatient (CLI) | payer OTHER | LOC: LAB.O 12:24 | PROVIDERS: ATTEND Surgery | DX: C44.91 Basal cell carcinoma of skin, unspecified (principal) ==

== ENCOUNTER 2019-07-29 11:09 | Emergency (ER) | payer OTHER ==
--- NOTE | 2019-07-29 11:47 | RAD ---
EXAM DESCRIPTION: Abdomen Series CLINICAL HISTORY: 78 years Male, eleni cardia mild abd pain COMPARISON: Prior radiograph of the chest dated 09/02/2017. TECHNIQUE: Acute abdominal series was performed. FINDINGS: Chest: Trachea is midline. The cardiomediastinal silhouette is normal in size. ABDOMEN: No abnormally dilated bowel loops suggest bowel obstruction. Mild constipation. No abnormal calcifications. IMPRESSION: 1. No acute cardiopulmonary process. 2. Mild constipation. Electronically signed by: Michelle Nichole MD 07/29/2019 11:46 AM CDT
[2019-07-29] MEDS ORDERED: PROMETHAZINE HCL 25 MG TAB PO ONE (12:19)
[2019-07-29 13:09] VITALS: TEMP 98
--- NOTE | 2019-07-29 13:25 | ED.PDOC ---
History of Present Illness - General Chief Complaint: General Time Seen by Provider: 07/29/19 11:12 Source: patient Exam Limitations: no limitations - History of Present Illness Initial Comments: The patient is a 78-year-old male brought into the emergency room secondary to altered mental status. The patient was brought in from a long-term care facility. Upon arrival by EMS the patient had a heart rate in the low 40s. He received a small dose of atropine which immediately improved the heart rate and allow the patient to mentate normally for him. He does have some baseline dementia. He is pleasant and cooperative. He has no complaints at the time of arrival. Looking back over his vital signs for the last few weeks, his blood pressures run low normal, particularly for his age group along with low normal heart rates. He does have approximately 6 medications that can lower the blood pressure and to that lower the heart rate. The patient does have significant long-term bundle branch blocks on his EKGs. No chest pain. No shortness of breath. Again he feels fine currently. His son is here who also indicates that he is mentating normally currently. Timing/Duration: unsure Severity: mild Improving Factors: nothing Worsening Factors: nothing Associated Symptoms: denies symptoms Allergies/Adverse Reactions: Allergies NO KNOWN ALLERGY Allergy (Verified 09/02/17 07:55) Home Medications: Ambulatory Orders Aspirin [Aspirin Adult Low Dose] 81 mg PO DAILY 02/06/16 Gabapentin [Neurontin] 300 mg PO TID 02/06/16 Tamsulosin [Flomax] 0.4 mg PO BEDTIME #20 cap 02/06/16 Acetamin W/Cod #3 Tab [Tylenol w/CODEINE #3] 1 ea PO TID PRN #14 tab 09/02/17 Atorvastatin Calcium [Lipitor] 40 mg PO BEDTIME 09/02/17 Cephalexin 1,000 mg PO BID 7 Days #30 cap 09/02/17 Clopidogrel Bisulfate [Plavix] 75 mg PO DAILY 09/02/17 Lisinopril [Prinivil] 10 mg PO DAILY 09/02/17 Terbinafine HCl [Lamisil] 250 mg PO DAILY 14 Days #14 tab 09/02/17 Triamcinolone 0.1% Oint [Kenalog 0.1% Ointment] 45 gm TOP BID #1 tube 09/02/17 Review of Systems - Review of Systems Constitutional: States: malaise EENTM: States: no symptoms reported Respiratory: States: no symptoms reported Cardiology: States: no symptoms reported Gastrointestinal/Abdominal: States: no symptoms reported Genitourinary: States: no symptoms reported Musculoskeletal: States: no symptoms reported Skin: States: no symptoms reported Neurological: States: see HPI Endocrine: States: no symptoms reported All other Systems: No Change from Baseline Past Medical History (General) - Patient Medical History Hx Seizures: No Hx Stroke: No Hx Dementia: No Hx Asthma: No Hx of COPD: No Hx Cardiac Disorders: Yes - [place] Hx Congestive Heart Failure: No Hx Pacemaker: No Hx Hypertension: Yes Hx Thyroid Disease: No Hx Diabetes: No Hx Gastroesophageal Reflux: No Hx Renal Disease: Yes - stones, prostate CA Hx Cancer: Yes - Prostate CA with tx Hx of HIV: No Hx Hepatitis C: No Hx MRSA: No - Vaccination History Hx Tetanus, Diphtheria Vaccination: Yes Hx Influenza Vaccination: No Hx Pneumococcal Vaccination: No - Social History Hx Tobacco Use: No Hx Chewing Tobacco Use: No Hx Alcohol Use: No Hx Substance Use: No Hx Substance Use Treatment: No Hx Depression: No Hx Physical Abuse: No Hx Emotional Abuse: No Hx Suspected Abuse: No - Female History Patient : No Family Medical History - Family History Mother Family History: No Known Age (years): 78 Living Status: Cause of : heart attack Hx Family Asthma: No Hx Family Congestive Heart Failure: Yes Hx Family Hypertension: No Hx Family Stroke: No Hx Cardiac Disease: Yes Hx Family Diabetes: No Hx Family Cancer: No Physical Exam - Physical Exam General Appearance: Alert, Comfortable, No apparent distress Eye Exam: bilateral normal Ears, Nose, Throat: normal pharynx, other - Hearing is chronically decreased Neck: non-tender, supple Respiratory: lungs clear, normal breath sounds, no respiratory distress, no accessory muscle use Cardiovascular/Chest: normal peripheral pulses, no edema, bradycardia Peripheral Pulses: radial,right: 2+, radial,left: 2+ Gastrointestinal/Abdominal: non tender, soft Rectal Exam: deferred Back Exam: no CVA tenderness, no vertebral tenderness Extremity: normal range of motion, non-tender, normal inspection, no pedal edema, normal capillary refill Neurologic: animal care giver II-XII nml as tested, alert, normal mood/affect, oriented x 3 Skin Exam: other - Patient does have several chronic skin lesions. Comments: Vital Signs - 24 hr 07/29/19 07/29/19 07/29/19 11:12 12:00 13:00 Temperature 98.0 F 98.1 F 98.0 F Pulse Rate [ 58 L 59 L 49 L apical] Respiratory 15 15 24 Rate Blood Pressure 137/78 105/71 106/60 [right brachial ] O2 Sat by Pulse 97 90 L 96 Oximetry Progress - Progress Progress: 07/29/19 13:27 The patient is a 78-year-old male presented emergency room secondary to mild altered mental status this morning. Altered mental status corrected after a small dose of atropine to treat bradycardia. The patient apparently has a low normal blood pressure to start with in addition. For this reason I am going to recommend that his metoprolol be reduced to 12.5 mg twice daily, the hydrochlorothiazide be reduced to 12.5 mg once daily and the amlodipine be discontinued. The patient and his family are in agreement with this. Vital signs need to be taken 3 times a day for the next week. Targeting a systolic blood pressure around 120-140 and a heart rate between 60 and 90 will hopefully reduce any of these further episodes. ER warnings are given. Keep routine follow-up with primary care doctor otherwise. hardik damon [id number] - Results/Orders Results/Orders: Acute abdominal series appears benign. EKG initially by EMS shows a heart rate of 42 bpm. By the time he arrived here after a dose of atropine his heart rate was around 62 bpm. This is a sinus bradycardia. The patient has longstanding right bundle branch as well as left axis deviation. He also has a longstanding inferior Q waves and longstanding poor R wave progression. No obvious new changes otherwise when compared to EKG from 2014. Telemetry monitoring shows sinus bradycardia with frequent PVCs. Laboratory Tests 07/29/19 07/29/19 07/29/19 11:35 11:35 11:35 WBC 5.7 RBC 5.90 Hgb 17.7 Hct 52.8 H MCV 89.4 MCH 29.9 MCHC 33.5 RDW 15.2 H Plt Count 112 L MPV 7.7 Absolute Neuts (auto) 3.80 Absolute Lymphs (auto) 1.10 Absolute Monos (auto) 0.60 Absolute Eos (auto) 0.30 Absolute Basos (auto) 0.00 Neutrophils % 66.2 Lymphocytes % 19.0 L Monocytes % 9.6 H Eosinophils % 4.5 Basophils % 0.7 PT 11.0 H INR 1.11 PTT (SP) 23.8 D-Dimer, Quantitative 240 Sodium 138 Potassium 3.9 Chloride 101 Carbon Dioxide 31 Anion Gap 9.9 L BUN 23 H Creatinine 1.23 BUN/Creatinine Ratio 18.7 Random Glucose 88 Serum Osmolality 278.8 Lactic Acid Calcium 8.8 Magnesium Total Bilirubin 1.1 H AST 31 ALT 46 Alkaline Phosphatase 71 Creatine Kinase 36 L CK-MB (CK-2) 1.0 CK-MB (CK-2) % Not Reportable Troponin I < 0.02 B-Natriuretic Peptide 57.7 Serum Total Protein 7.4 Albumin 3.7 Globulin 3.7 H Albumin/Globulin Ratio 1.0 L Amylase 73 Lipase Urine Color Urine Appearance Urine pH Ur Specific [place] Urine Protein Urine Glucose (UA) Urine Ketones Urine Blood Urine Nitrite Urine Bilirubin Urine Urobilinogen Ur Leukocyte Esterase Urine RBC Urine WBC Ur Epithelial Cells Urine Bacteria 07/29/19 07/29/19 07/29/19 11:35 11:35 12:20 WBC RBC Hgb Hct MCV MCH MCHC RDW Plt Count MPV Absolute Neuts (auto) Absolute Lymphs (auto) Absolute Monos (auto) Absolute Eos (auto) Absolute Basos (auto) Neutrophils % Lymphocytes % Monocytes % Eosinophils % Basophils % PT INR PTT (SP) D-Dimer, Quantitative Sodium Potassium Chloride Carbon Dioxide Anion Gap BUN Creatinine BUN/Creatinine Ratio Random Glucose Serum Osmolality Lactic Acid 1.4 Calcium Magnesium 2.0 Total Bilirubin AST ALT Alkaline Phosphatase Creatine Kinase CK-MB (CK-2) CK-MB (CK-2) % Troponin I B-Natriuretic Peptide Serum Total Protein Albumin Globulin Albumin/Globulin Ratio Amylase Lipase 44 Urine Color Yellow Urine Appearance Clear Urine pH 7.5 Ur Specific [place] 1.020 Urine Protein Negative Urine Glucose (UA) Negative Urine Ketones Negative Urine Blood Negative Urine Nitrite Negative Urine Bilirubin Negative Urine Urobilinogen 2.0 H Ur Leukocyte Esterase Negative Urine RBC 0 Urine WBC 0-1 Ur Epithelial Cells 0 Urine Bacteria 0 Departure - Departure Clinical Impression: Symptomatic bradycardia Disposition: Discharge to SNF Condition: Fair Departure Forms: ED Discharge - Pt. Copy, Patient Portal Self Enrollment Diet: regular diet Activity: increase activity as tolerated Referrals: Eddie Meadows MD [Primary Care Provider] - 1-2 Weeks Home Medications: Ambulatory Orders Aspirin [Aspirin Adult Low Dose] 81 mg PO DAILY 02/06/16 Gabapentin [Neurontin] 300 mg PO TID 02/06/16 Tamsulosin [Flomax] 0.4 mg PO BEDTIME #20 cap 02/06/16 Acetamin W/Cod #3 Tab [Tylenol w/CODEINE #3] 1 ea PO TID PRN #14 tab 09/02/17 Atorvastatin Calcium [Lipitor] 40 mg PO BEDTIME 09/02/17 Cephalexin 1,000 mg PO BID 7 Days #30 cap 09/02/17 Clopidogrel Bisulfate [Plavix] 75 mg PO DAILY 09/02/17 Lisinopril [Prinivil] 10 mg PO DAILY 09/02/17 Terbinafine HCl [Lamisil] 250 mg PO DAILY 14 Days #14 tab 09/02/17 Triamcinolone 0.1% Oint [Kenalog 0.1% Ointment] 45 gm TOP BID #1 tube 09/02/17 Additional Instructions: The patient is a 78-year-old male presented emergency room secondary to mild altered mental status this morning. Altered mental status corrected after a small dose of atropine to treat bradycardia. The patient apparently has a low normal blood pressure to start with in addition. For this reason I am going to recommend that his metoprolol be reduced to 12.5 mg twice daily, the hydrochlorothiazide be reduced to 12.5 mg once daily and the amlodipine be discontinued. The patient and his family are in agreement with this. Vital signs need to be taken 3 times a day for the next week. Targeting a systolic blood pressure around 120-140 and a heart rate between 60 and 90 will hopefully reduce any of these further episodes. ER warnings are given. Keep routine follow-up with primary care doctor otherwise.
[2019-07-29 16:08] VITALS: BP 115/70; O2SAT 93
== END 2019-07-29 14:00 ==
LOC: ER 11:09
DX: R00.1 Bradycardia, unspecified (principal); R41.82 Altered mental status, unspecified; I10 Essential (primary) hypertension; I25.2 Old myocardial infarction; Z79.82 Long term (current) use of aspirin; Z79.899 Other long term (current) drug therapy
CPT/HCPCS: 36415; 74019; 80053; 81001; 82150; 82550; 82553; 83605; 83690; 83735; 83880; 84484; 85025; 85379; 85610; 85730; 93005; Q0169

== ENCOUNTER 2019-08-30 16:22 | Emergency (ER) | payer OTHER ==
[2019-08-30] MEDS ORDERED: ASPIRIN TABLET 325 MG TAB PO ONE (16:31)
[2019-08-30] MEDS ORDERED: ONDANSETRON INJ 4 MG/2 ML VIAL IV ONE (16:31)
[2019-08-30] MEDS ORDERED: NITROGLYCERIN 0.4 MG 25 EA TAB SL ONE (16:31)
[2019-08-30] MEDS ORDERED: SODIUM CHLORIDE 0.9% (FLUSH) 10 ML SYG IV PRN (16:31)
--- NOTE | 2019-08-30 16:39 | ED.PDOC ---
History of Present Illness - General Chief Complaint: Cardiovascular Problem Stated Complaint: Chest pain Time Seen by Provider: 08/30/19 16:23 Source: patient, RN notes reviewed, Vital Signs reviewed, EMS notes reviewed, [facility] records, old records Exam Limitations: other - Advanced dementia - History of Present Illness Initial Comments: This is a 78-year-old male with history of CAD with CABG, presenting to the emergency department with reported chest pain onset 20 minutes prior to arrival. Patient states the pain began in his lower abdomen and radiated up to his e pigastric area and then to his ribs. He is unsure when the pain started, and states that he does not know if he is currently hurting at this time. He does not report any shortness of breath, nausea, vomiting. History is limited due to advanced dementia. Allergies/Adverse Reactions: Allergies NO KNOWN ALLERGY Allergy (Verified 09/02/17 07:55) Home Medications: Ambulatory Orders Aspirin [Aspirin Adult Low Dose] 81 mg PO DAILY 02/06/16 Gabapentin [Neurontin] 300 mg PO TID 02/06/16 RX: Tamsulosin [Flomax] 0.4 mg PO BEDTIME #20 cap 02/06/16 Atorvastatin Calcium [Lipitor] 40 mg PO BEDTIME 09/02/17 RX: Clopidogrel Bisulfate [Plavix] 75 mg PO DAILY 09/02/17 RX: Lisinopril [Prinivil] 10 mg PO DAILY 09/02/17 Citalopram Hydrobromide [Citalopram] 10 mg PO DAILY 07/29/19 Donepezil HCl [Aricept] 5 mg PO BEDTIME 07/29/19 RX: Hydrochlorothiazide 25 mg PO DAILY 07/29/19 RX: Metoprolol Tartrate 25 mg PO BID 07/29/19 RX: Pantoprazole Sodium 20 mg PO DAILY 07/29/19 Review of Systems - Review of Systems Respiratory: Denies: cough, short of breath Cardiology: States: chest pain Gastrointestinal/Abdominal: States: abdominal pain. Denies: nausea, vomiting Unable to Obtain Due To: dementia Past Medical History (General) - Patient Medical History Hx Seizures: No Hx Stroke: No Hx Dementia: No Hx Asthma: No Hx of COPD: No Hx Cardiac Disorders: Yes - [place] Hx Congestive Heart Failure: No Hx Pacemaker: No Hx Hypertension: Yes Hx Thyroid Disease: No Hx Diabetes: No Hx Gastroesophageal Reflux: No Hx Renal Disease: Yes - stones, prostate CA Hx Cancer: Yes - Prostate CA with tx Hx of HIV: No Hx Hepatitis C: No Hx MRSA: No - Vaccination History Hx Tetanus, Diphtheria Vaccination: Yes Hx Influenza Vaccination: No Hx Pneumococcal Vaccination: No - Social History Hx Tobacco Use: No Hx Chewing Tobacco Use: No Hx Alcohol Use: No Hx Substance Use: No Hx Substance Use Treatment: No Hx Depression: No Hx Physical Abuse: No Hx Emotional Abuse: No Hx Suspected Abuse: No - Female History Patient : No Family Medical History - Family History Mother Family History: No Known Age (years): 78 Living Status: Cause of : heart attack Hx Family Asthma: No Hx Family Congestive Heart Failure: Yes Hx Family Hypertension: No Hx Family Stroke: No Hx Cardiac Disease: Yes Hx Family Diabetes: No Hx Family Cancer: No Physical Exam - Physical Exam General Appearance: Alert, Comfortable, No apparent distress Eye Exam: bilateral normal Ears, Nose, Throat: normal ENT inspection, normal pharynx Neck: full range of motion, supple Respiratory: lungs clear, normal breath sounds, no respiratory distress, no accessory muscle use, respiratory distress Cardiovascular/Chest: normal peripheral pulses, regular rate, rhythm, no edema, no gallop, no JVD, no murmur Peripheral Pulses: radial,right: 2+, radial,left: 2+, dorsalis pedis,right: 2+, dorsalis pedis,left: 2+ Gastrointestinal/Abdominal: non tender, soft, no organomegaly, no pulsatile mass Back Exam: no CVA tenderness, no vertebral tenderness Extremity: normal range of motion, non-tender, normal inspection Neurologic: no motor/sensory deficits, alert, normal mood/affect, other - Oriented to person and place, not time Skin Exam: normal color, warm/dry Progress - Progress Progress: 08/30/19 18:53 Rechecked. Patient is completely pain-free at this time. I reviewed labs. He states he has absolutely no recollection of the episode of pain that he described earlier. Awaiting repeat EKG/troponin. If negative, anticipate he will be able to be discharged back to [facility] 08/30/19 20:27 DDX: ACS, UTI, kidney stone, gastritis 78-year-old male with advanced dementia presenting with reported lower abdominal pain that radiated up to his ribs. Labs today are reassuring. He was pain- free on arrival, remained pain-free throughout his ER stay. EKG with chronic changes, nothing acute, troponins negative x2. Very low suspicion for ACS at this time. Given normal vital signs and absence of pain in the emergency department, no indication for admission at this time. Will send back to [facility]. Strict warnings given to return the emergency room for worsening pain, fever, vomiting blood, blood in stool, blood in urine, or any other concerns. Cedric Plaza DO [facility] #[id number] - Results/Orders Results/Orders: EKG interpreted by me at 1626. Sinus bradycardia, rate of 56, left axis, right bundle branch block, inferior Q waves, nonspecific T wave changes in the septal and lateral leads EXAM DESCRIPTION: Chest,1 View CLINICAL HISTORY: chest pain COMPARISON: 02 Sep 2017 TECHNIQUE: AP portable chest FINDINGS: Patient is poststernotomy. The lungs are free of acute infiltrate or evidence of effusion. The heart is within range of normal. IMPRESSION: I see no acute cardiopulmonary pathology or significant interval change. Electronically signed by: Maurizio Cabezas MD 08/30/2019 4:58 PM CDT Repeat EKG reviewed by me at 4923. Sinus bradycardia, rate of 54, first-degree AV block. Left axis, right bundle branch block, nonspecific T wave changes in the septal and lateral leads, inferior Q waves, unchanged from previous. 08/30/19 16:31 EKG Stat Pulse Ox Stat 08/30/19 16:32 Pulse Oximetry Assessment DAILY 08/30/19 19:00 EKG STAT Laboratory Results - last 24 hr 08/30/19 08/30/19 08/30/19 16:39 16:39 18:30 WBC 8.0 Cancelled RBC 6.14 H Cancelled Hgb 18.3 H Cancelled Hct 54.4 H Cancelled MCV 88.6 Cancelled MCH 29.9 Cancelled MCHC 33.7 Cancelled RDW 15.2 H Cancelled Plt Count 115 L Cancelled MPV 8.4 Cancelled Absolute Neuts (auto) 5.30 Cancelled Absolute Lymphs (auto) 1.70 Cancelled Absolute Monos (auto) 0.80 Cancelled Absolute Eos (auto) 0.20 Cancelled Absolute Basos (auto) 0.10 Cancelled Neutrophils % 65.9 Cancelled Lymphocytes % 20.7 Cancelled Monocytes % 9.6 H Cancelled Eosinophils % 3.1 Cancelled Basophils % 0.7 Cancelled Differential Comment Cancelled RBC Morphology Cancelled PT 10.8 INR 1.09 PTT (SP) 23.7 Sodium 137 Potassium 3.9 Chloride 103 Carbon Dioxide 27 Anion Gap 10.9 L BUN 35 H Creatinine 1.15 BUN/Creatinine Ratio 30.4 H Random Glucose 109 H Serum Osmolality 282.4 Calcium 8.8 Magnesium 2.3 Total Bilirubin 0.9 Direct Bilirubin 0.1 Indirect Bilirubin 0.8 AST 32 ALT 43 Alkaline Phosphatase 92 Creatine Kinase 45 CK-MB (CK-2) 1.3 CK-MB (CK-2) % Not Reportable Troponin I < 0.02 < 0.02 B-Natriuretic Peptide 21.6 Serum Total Protein 8.0 Albumin 3.9 Lipase 90 H Urine Color Urine Appearance Urine pH Ur Specific [place] Urine Protein Urine Glucose (UA) Urine Ketones Urine Blood Urine Nitrite Urine Bilirubin Urine Urobilinogen Ur Leukocyte Esterase Urine RBC Urine WBC Ur Epithelial Cells Urine Bacteria 08/30/19 19:17 WBC RBC Hgb Hct MCV MCH MCHC RDW Plt Count MPV Absolute Neuts (auto) Absolute Lymphs (auto) Absolute Monos (auto) Absolute Eos (auto) Absolute Basos (auto) Neutrophils % Lymphocytes % Monocytes % Eosinophils % Basophils % Differential Comment RBC Morphology PT INR PTT (SP) Sodium Potassium Chloride Carbon Dioxide Anion Gap BUN Creatinine BUN/Creatinine Ratio Random Glucose Serum Osmolality Calcium Magnesium Total Bilirubin Direct Bilirubin Indirect Bilirubin AST ALT Alkaline Phosphatase Creatine Kinase CK-MB (CK-2) CK-MB (CK-2) % Troponin I B-Natriuretic Peptide Serum Total Protein Albumin Lipase Urine Color Dk yellow Urine Appearance Clear Urine pH 5.5 Ur Specific [place] 1.025 Urine Protein Negative Urine Glucose (UA) Negative Urine Ketones Negative Urine Blood Negative Urine Nitrite Negative Urine Bilirubin Small H Urine Urobilinogen 2.0 H Ur Leukocyte Esterase Negative Urine RBC 1-3 Urine WBC 1-3 Ur Epithelial Cells 0-1 Urine Bacteria 0 Departure - Departure Clinical Impression: Acute chest pain, S/P CABG (coronary artery bypass graft) [facility] Living Condition: Good Departure Forms: ED Discharge - Pt. Copy, Patient Portal Self Enrollment Instructions: DI for Chest Pain Referrals: Eddie Meadows MD [Primary Care Provider] - 1-5 Days Home Medications: Ambulatory Orders Aspirin [Aspirin Adult Low Dose] 81 mg PO DAILY 02/06/16 Gabapentin [Neurontin] 300 mg PO TID 02/06/16 RX: Tamsulosin [Flomax] 0.4 mg PO BEDTIME #20 cap 02/06/16 Atorvastatin Calcium [Lipitor] 40 mg PO BEDTIME 09/02/17 RX: Clopidogrel Bisulfate [Plavix] 75 mg PO DAILY 09/02/17 RX: Lisinopril [Prinivil] 10 mg PO DAILY 09/02/17 Citalopram Hydrobromide [Citalopram] 10 mg PO DAILY 07/29/19 Donepezil HCl [Aricept] 5 mg PO BEDTIME 07/29/19 RX: Hydrochlorothiazide 25 mg PO DAILY 07/29/19 RX: Metoprolol Tartrate 25 mg PO BID 07/29/19 RX: Pantoprazole Sodium 20 mg PO DAILY 07/29/19
--- NOTE | 2019-08-30 17:00 | RAD ---
EXAM DESCRIPTION: Chest,1 View CLINICAL HISTORY: chest pain COMPARISON: 02 Sep 2017 TECHNIQUE: AP portable chest FINDINGS: Patient is poststernotomy. The lungs are free of acute infiltrate or evidence of effusion. The heart is within range of normal. IMPRESSION: I see no acute cardiopulmonary pathology or significant interval change. Electronically signed by: Maurizio Cabezas MD 08/30/2019 4:58 PM CDT
[2019-08-30 19:04] VITALS: BP 140/82; O2SAT 98
[2019-08-30 19:08] VITALS: TEMP 97
== END 2019-08-30 20:00 ==
LOC: ER 16:22
DX: R07.9 Chest pain, unspecified (principal); I44.0 Atrioventricular block, first degree; I45.10 Unspecified right bundle-branch block; I25.10 Atherosclerotic heart disease of native coronary artery without angina pectoris; I10 Essential (primary) hypertension; R00.1 Bradycardia, unspecified; Z95.1 Presence of aortocoronary bypass graft; F03.90 Unspecified dementia, unspecified severity, without behavioral disturbance, psychotic disturbance, mood disturbance, and anxiety; Z87.442 Personal history of urinary calculi
CPT/HCPCS: 36415; 71045; 80048; 80076; 81001; 82550; 82553; 83690; 83880; 84484; 85025; 85610; 85730; 93005; 94760; J2405

== ENCOUNTER 2020-01-26 20:43 | Observation (INO) | payer OTHER ==
--- NOTE | 2020-01-26 21:02 | ED.PDOC ---
History of Present Illness - General Chief Complaint: Chest Pain/ID Stated Complaint: CP C/O around 1999 Time Seen by Provider: 01/26/20 20:45 Source: EMS notes reviewed, retirement records Exam Limitations: clinical condition - History of Present Illness Initial Comments: The patient is an 79-year-old male sent up from the retirement secondary to a report that the patient was having chest pain and subsequently passed out with his eyes rolling towards the back of his head. This lasted several minutes. He did not stop breathing. There was apparently no drop in blood pressure or pulse rate. Of the time EMS arrived he was awake but drowsy. He is mumbling and not making any sense. Normally he is apparently able to talk but does have significant dementia. He does have a significant history of coronary artery disease. I do not see any history of stroke. He does not appear to be in any pain. He is drowsy. He does appear to move all extremities. I do not see any obvious facial droop at this point. Difficult to assess mental status otherwise. Timing/Duration: 1/2 hour - Prior to arrival Severity: severe Improving Factors: nothing Worsening Factors: nothing Allergies/Adverse Reactions: Allergies NO KNOWN ALLERGY Allergy (Verified 01/26/20 21:03) Home Medications: Ambulatory Orders Aspirin [Aspirin Adult Low Dose] 81 mg PO DAILY 02/06/16 Gabapentin [Neurontin] 300 mg PO TID 02/06/16 Tamsulosin [Flomax] 0.4 mg PO BEDTIME #20 cap 02/06/16 Atorvastatin Calcium [Lipitor] 40 mg PO BEDTIME 09/02/17 Clopidogrel Bisulfate [Plavix] 75 mg PO DAILY 09/02/17 Lisinopril [Prinivil] 10 mg PO DAILY 09/02/17 Citalopram Hydrobromide [Citalopram] 10 mg PO DAILY 07/29/19 Donepezil HCl [Aricept] 5 mg PO BEDTIME 07/29/19 Hydrochlorothiazide 12.5 mg PO DAILY 07/29/19 Metoprolol Tartrate 12.5 mg PO BID 07/29/19 Pantoprazole Sodium 20 mg PO DAILY 07/29/19 Review of Systems - Review of Systems Review of Systems: 01/26/20 21:01 Unable to assess secondary to patient's current condition. Unable to Obtain Due To: condition, dementia Past Medical History (General) - Patient Medical History Hx Seizures: No Hx Stroke: No Hx Dementia: No Hx Asthma: No Hx of COPD: No Hx Cardiac Disorders: Yes - ID Hx Congestive Heart Failure: No Hx Pacemaker: No Hx Hypertension: Yes Hx Thyroid Disease: No Hx Diabetes: No Hx Gastroesophageal Reflux: No Hx Renal Disease: Yes - stones, prostate CA Hx Cancer: Yes - Prostate CA with tx Hx of HIV: No Hx Hepatitis C: No Hx MRSA: No - Vaccination History Hx Tetanus, Diphtheria Vaccination: Yes Hx Influenza Vaccination: No Hx Pneumococcal Vaccination: No - Social History Hx Tobacco Use: No Hx Chewing Tobacco Use: No Hx Alcohol Use: No Hx Substance Use: No Hx Substance Use Treatment: No Hx Depression: No Hx Physical Abuse: No Hx Emotional Abuse: No Hx Suspected Abuse: No - Female History Patient : No Family Medical History - Family History Mother Family History: No Known Age (years): 78 Living Status: Cause of : heart attack Hx Family Asthma: No Hx Family Congestive Heart Failure: Yes Hx Family Hypertension: No Hx Family Stroke: No Hx Cardiac Disease: Yes Hx Family Diabetes: No Hx Family Cancer: No Physical Exam - Physical Exam General Appearance: Alert - Mildly drowsy Eye Exam: bilateral normal - Extraocular movements are intact. Pupils are bilaterally 3 mm currently. Ears, Nose, Throat: other - The patient does hear me as he does open his mouth when I tell him to. Mucous membranes are mildly dry. Neck: non-tender, supple Respiratory: lungs clear, normal breath sounds, no respiratory distress, no accessory muscle use Cardiovascular/Chest: normal peripheral pulses, regular rate, rhythm, no edema Peripheral Pulses: radial,right: 2+, radial,left: 2+ Gastrointestinal/Abdominal: non tender - As best can be discerned, soft Rectal Exam: deferred Back Exam: no vertebral tenderness - As best can be discerned Extremity: no pedal edema, normal capillary refill Neurologic: alert - But drowsy, other - He is the patient is disoriented to where he is unable to communicate it at this point. Skin Exam: normal color Progress - Progress Progress: 01/27/20 01:05 The patient is a 79-year-old male brought to the emergency room secondary to an episode of chest pain followed by loss of consciousness and then an altered mental state subsequently. It is difficult to determine at this point whether the patient had a seizure or a TIA or some other pathology causing the symptoms. The patient symptoms resolved after approximately 30 minutes here. Imaging of the head and chest are reassuring. Telemetry has been reassuring. He appears to be back to his baseline mental state. 2 sets of cardiac enzymes are negative. The patient is going to be placed in house overnight for further monitoring. Glucose was normal with EMS at the scene. Admit for continued care and monitoring. The patient is going to be started on oral Augmentin for the sinusitis. hardik damon [id number] - Results/Orders Results/Orders: Head CT shows no acute pathology aside from pansinusitis on the right. CTA of the chest shows no acute pathology in the large vessels or pulmonary vessels. Chest x-ray shows no obvious acute pathology. EKG shows normal sinus rhythm at 63 bpm. Left axis deviation which is chronic. Right bundle branch block which is chronic. Borderline criteria for LVH. Old lateral ID. Probable old inferior ID. This is consistent with an EKG from August of this year. Laboratory Tests 01/26/20 01/26/20 01/26/20 21:00 21:00 21:00 WBC 5.9 RBC 5.99 Hgb 17.9 Hct 53.1 H MCV 88.6 MCH 30.0 MCHC 33.8 RDW 14.7 H Plt Count 129 L MPV 7.6 Absolute Neuts (auto) 3.90 Absolute Lymphs (auto) 0.90 L Absolute Monos (auto) 0.60 Absolute Eos (auto) 0.40 Absolute Basos (auto) 0.10 Neutrophils % 67.3 Lymphocytes % 16.0 L Monocytes % 9.6 H Eosinophils % 6.2 H Basophils % 0.9 PT 11.1 H INR 1.12 PTT (SP) 23.9 D-Dimer, Quantitative 469.0 H Sodium 145 Potassium 4.7 Chloride 104 Carbon Dioxide 31 Anion Gap 14.7 BUN 23 H Creatinine 1.17 BUN/Creatinine Ratio 19.7 Random Glucose 92 Serum Osmolality 292.0 Lactic Acid Calcium 9.2 Magnesium 2.0 Total Bilirubin 0.9 AST 38 ALT 50 Alkaline Phosphatase 86 Creatine Kinase 46 CK-MB (CK-2) 1.8 CK-MB (CK-2) % Not Reportable Troponin I < 0.02 B-Natriuretic Peptide 124.0 H Serum Total Protein 7.8 Albumin 3.9 Globulin 3.9 H Albumin/Globulin Ratio 1.0 L Urine Color Urine Appearance Urine pH Ur Specific Levant Urine Protein Urine Glucose (UA) Urine Ketones Urine Blood Urine Nitrite Urine Bilirubin Urine Urobilinogen Ur Leukocyte Esterase Urine RBC Urine WBC Ur Epithelial Cells Urine Bacteria 01/26/20 01/26/20 01/26/20 21:00 23:13 23:52 WBC RBC Hgb Hct MCV MCH MCHC RDW Plt Count MPV Absolute Neuts (auto) Absolute Lymphs (auto) Absolute Monos (auto) Absolute Eos (auto) Absolute Basos (auto) Neutrophils % Lymphocytes % Monocytes % Eosinophils % Basophils % PT INR PTT (SP) D-Dimer, Quantitative Sodium Potassium Chloride Carbon Dioxide Anion Gap BUN Creatinine BUN/Creatinine Ratio Random Glucose Serum Osmolality Lactic Acid 1.8 Calcium Magnesium Total Bilirubin AST ALT Alkaline Phosphatase Creatine Kinase 45 CK-MB (CK-2) 1.6 CK-MB (CK-2) % Not Reportable Troponin I < 0.02 B-Natriuretic Peptide Serum Total Protein Albumin Globulin Albumin/Globulin Ratio Urine Color Yellow Urine Appearance Clear Urine pH 7.0 Ur Specific Levant 1.025 Urine Protein Negative Urine Glucose (UA) Negative Urine Ketones Trace Urine Blood Negative Urine Nitrite Negative Urine Bilirubin Negative Urine Urobilinogen 0.2 Ur Leukocyte Esterase Negative Urine RBC 0 Urine WBC 0-1 Ur Epithelial Cells 0 Urine Bacteria 0 Departure - Departure Clinical Impression: Sinusitis Qualifiers: Sinusitis location: sphenoidal Chronicity: acute Recurrence: not specified as recurrent Qualified Code(s): J01.30 - Acute sphenoidal sinusitis, unspecified Altered mental state Qualifiers: Altered mental status type: somnolence Qualified Code(s): R40.0 - Somnolence Chest pain Qualifiers: Chest pain type: unspecified Qualified Code(s): R07.9 - Chest pain, unspecified Disposition: Admit Patient Departure Forms: ED Discharge - Pt. Copy, Patient Portal Self Enrollment Instructions: DI for Chest Pain Referrals: Eddie Meadows MD [Primary Care Provider] - 1-2 Weeks Home Medications: Ambulatory Orders Aspirin [Aspirin Adult Low Dose] 81 mg PO DAILY 02/06/16 Gabapentin [Neurontin] 300 mg PO TID 02/06/16 Tamsulosin [Flomax] 0.4 mg PO BEDTIME #20 cap 02/06/16 Atorvastatin Calcium [Lipitor] 40 mg PO BEDTIME 09/02/17 Clopidogrel Bisulfate [Plavix] 75 mg PO DAILY 09/02/17 Lisinopril [Prinivil] 10 mg PO DAILY 09/02/17 Citalopram Hydrobromide [Citalopram] 10 mg PO DAILY 07/29/19 Donepezil HCl [Aricept] 5 mg PO BEDTIME 07/29/19 Hydrochlorothiazide 12.5 mg PO DAILY 07/29/19 Metoprolol Tartrate 12.5 mg PO BID 07/29/19 Pantoprazole Sodium 20 mg PO DAILY 07/29/19 Decision To Admit - Decistion To Admit Decision to Admit Reason: Medical Nature Decision to Admit Date: 01/27/20 Decision to Admit Time: 01:08
--- NOTE | 2020-01-26 21:47 | RAD ---
EXAM DESCRIPTION: Chest,1 View 01/26/2020 9:44 PM CDT CLINICAL HISTORY: 79 years, Male, syncope COMPARISON: 08/30/2019 FINDINGS: Single view of the chest was obtained portable. Prior films were compared. The lung volume is decreased. External EKG leads within the [id number] limits diagnosis. The cardiomediastinal silhouette demonstrate to be unremarkable. The heart is not enlarged. The thoracic aorta demonstrate minimal intimal calcification. Sternotomy wires and pericardiac clips correspond to previous CABG. Costophrenic angles are sharp. No areas of consolidation or masses are seen. The rest of the soft tissue and bony structures demonstrate to be unremarkable. IMPRESSION: DECREASED LUNG VOLUME. STATUS POST CABG. NO ACUTE CARDIOPULMONARY DISEASE SEEN. Electronically signed by: Maurizio Kolb MD 01/26/2020 9:45 PM CDT
--- NOTE | 2020-01-26 21:48 | CT ---
EXAM DESCRIPTION: Head 01/26/2020 9:29 PM CDT CLINICAL HISTORY: 79 years, Male, ams, syncope COMPARISON: 09/02/2017. FINDINGS: Multiple transaxial tomograms of the brain were obtained from the base of the skull to the vertex without contrast. 2-D multiplanar reformats and the coronal and sagittal plane were performed and reviewed. An individualized dose optimization technique, Automated Exposure Control, was utilized for the performed procedure. Brain parenchyma demonstrate prominence of the sulci and gyri are corresponding to cerebral and cerebellar atrophy. There is periventricular white matter changes of microvascular ischemia. There is no midline shift and/or mass effect. There is no evidence for acute hemorrhage. Lateral ventricles and cisterns displace normal appearance. No intra or extra axial fluid collections were seen. The calvarium is intact with no evidence for fracture. The visualized portions of the paranasal sinuses demonstrate calcification and mucosal thickening of the right ethmoid as well as posterior sphenoid and minimal mucosal of the right maxillary sinus corresponding to sinusitis. The Orbits demonstrate to be clear. IMPRESSION: MILD BRAIN ATROPHY WITH PERIVENTRICULAR WHITE MATTER CHANGES OF MICROVASCULAR ISCHEMIA. NO ACUTE INTRACRANIAL HEMORRHAGE. RIGHT-SIDED PANSINUSITIS. Electronically signed by: Maurizio Kolb MD 01/26/2020 9:46 PM CDT
--- NOTE | 2020-01-26 23:37 | CT ---
CLINICAL HISTORY: chesty pain, syncope COMPARISON: None. TECHNIQUE: CT CHEST ANGIOGRAPHY WITH IV CONTRAST on 01/26/2020 10:13 PM CDT. MIPS reconstructions were generated. This exam was performed according to our departmental dose-optimization program, which includes automated exposure control, adjustment of the mA and/or kV according to patient size and/or use of iterative reconstruction technique. MIP images were generated. FINDINGS: Thoracic aorta is normal in course and caliber without aneurysm or dissection. Pulmonary arteries are adequately opacified without acute or chronic filling defects. The heart is enlarged following sternotomy. There is no pericardial effusion. Intrathoracic lymph nodes are not enlarged. There is no pleural effusion, pleural thickening or pneumothorax. Central airways are patent. Lungs are clear with no consolidation, mass or interstitial lung disease. In the upper abdomen, gallbladder contains multiple gallstones. There are no acute osseous findings. No suspicious bony lesions. IMPRESSION: No aortic dissection or aneurysm. No pulmonary embolus. No pneumonia. Electronically signed by: Naren Daley MD 01/26/2020 11:36 PM CDT
[2020-01-26] MEDS ORDERED: MAGNESIUM SULFATE PREMIX 2GM 2 GM in PREMIX BAG 1 BAG IVPB ONE (23:41)
[2020-01-26] MEDS ORDERED: SODIUM CHLORIDE 0.9% 1000ML 1,000 ML IVS ONE (23:41)
[2020-01-27] MEDS ORDERED: ASPIRIN TABLET 325 MG TAB PO ONE (00:49)
[2020-01-27] MEDS ORDERED: ACETAMINOPHEN 325 MG TAB PO PRN (01:25)
[2020-01-27] MEDS ORDERED: SODIUM CHLORIDE 0.9% (FLUSH) 10 ML SYG IV PRN (01:25)
[2020-01-27] MEDS ORDERED: NITROGLYCERIN 0.4 MG 25 EA TAB SL PRN (01:25)
[2020-01-27] MEDS ORDERED: MORPHINE SULFATE INJ 10 MG/ML VIAL IV PRN (01:25)
[2020-01-27] MEDS ORDERED: ONDANSETRON INJ 4 MG/2 ML VIAL IV PRN (01:29)
[2020-01-27] MEDS ORDERED: IV SET AND CAP CHANGE INJ INJ SCH (01:30)
[2020-01-27] MEDS ORDERED: HALOPERIDOL LACTATE INJ 5 MG/ML VIAL ONE (01:41)
[2020-01-27] MEDS ORDERED: diphenhydrAMINE HCL 50 MG/ML VIAL ONE (01:41)
[2020-01-27] MEDS ORDERED: HALOPERIDOL LACTATE INJ 5 MG/ML VIAL IM ONE (01:41)
[2020-01-27] MEDS ORDERED: diphenhydrAMINE HCL 50 MG/ML VIAL IV PRN (01:42)
[2020-01-27] MEDS ORDERED: GABAPENTIN 300 MG CAP PO SCH (02:00)
[2020-01-27] MEDS ORDERED: cloNIDine HCL 0.1 MG TAB PO ONE (02:31)
[2020-01-27] MEDS ORDERED: PANTOPRAZOLE SODIUM TAB 40 MG PO SCH (06:30)
[2020-01-27] MEDS ORDERED: hydroCHLOROthiazide 12.5 MG CAP ONE (07:56)
[2020-01-27] MEDS ORDERED: ASPIRIN (CHEWABLE) 81 MG TAB ONE (07:56)
[2020-01-27] MEDS ORDERED: CITALOPRAM HBR 20 MG TAB PO SCH (09:00)
[2020-01-27] MEDS ORDERED: ENOXAPARIN SODIUM 40 MG/0.4 ML SYG SUBCU SCH (09:00)
[2020-01-27] MEDS ORDERED: hydroCHLOROthiazide 12.5 MG CAP PO SCH (09:00)
[2020-01-27] MEDS ORDERED: METOPROLOL TARTRATE 25 MG TAB PO SCH (09:00)
[2020-01-27] MEDS ORDERED: CLOPIDOGREL 75 MG TAB PO SCH (09:00)
[2020-01-27] MEDS ORDERED: SODIUM CHLORIDE 0.9% (FLUSH) 10 ML SYG IV SCH (09:00)
[2020-01-27] MEDS ORDERED: LISINOPRIL 10 MG TAB PO SCH (09:00)
[2020-01-27] MEDS ORDERED: ASPIRIN (ENTERIC COATED) 81 MG TAB PO SCH (09:00)
[2020-01-27 10:18] VITALS: BP 152/84; TEMP 98.3; O2SAT 94
--- NOTE | 2020-01-27 15:20 | SSS ---
SUPERVISING PHYSICIAN: Garrick Love MD DATE OF ADMISSION: 01/26/20 DATE OF DISCHARGE: 01/27/20 HISTORY OF PRESENT ILLNESS: This is an 79-year-old male who [facility] due to chest pain and subsequently syncopal episode. Apparently his eyes rolled in the back of his head. This lasted several minutes. He did not stop breathing. There was no drop in blood pressure or pulse rate. When EMS arrived, he was drowsy and mumbling and not make any sense. He does have a longstanding history of dementia, however, this acute episode was out of the normal for him. In the Emergency Room, he troponins which were negative, EKG without any acute changes. CT scan of his head showed mild brain atrophy with periventricular white matter changes and microvascular ischemia consistent with age. He had pansinusitis as well. He was admitted for neuro checks concerning for any arrhythmias. There were no arrhythmias noted and he had negative troponins x3. Echocardiogram was attempted to be done, but the patient ended up refusing that although on the limited study, there showed to be ejection fraction of around 55%, mild left ventricular hypertrophy, but no significant valvular dysfunction. On assessment this morning, the patient awoke, was able to converse. There were no focal deficits and he was back to his baseline. PAST MEDICAL HISTORY: 1. Dementia. 2. Cardiovascular disease. 3. Hypertension. 4. Prostate cancer. PAST SURGICAL HISTORY: He is unable to give me any significant past surgical history. MEDICATIONS: Please see med rec list once verified in the computer. ALLERGIES: NO KNOWN DRUG ALLERGIES. FAMILY HISTORY: He is unable to give me clear family history at this time and even if he was, it probably would not be contributory to his current condition. SOCIAL HISTORY: The [facility] is a [facility] resident. He denies smoking and drinking. PHYSICAL EXAMINATION: VITAL SIGNS: Blood 152/84, heart rate 83, respiratory rate 18, temperature 98.3, oxygen saturation 94%. GENERAL: Mr. Fajardo is an 79-year-old male patient who is in no severe distress currently. NEUROLOGIC: The patient is alert, but confused. No focal deficits. LUNGS: Clear to auscultation bilaterally. CARDIOVASCULAR: Regular rate and rhythm. Normal S1, S2. ABDOMEN: Soft. Positive bowel sounds. GENITOURINARY: Deferred. EXTREMITIES: Lower extremities with no edema. LABORATORY: Chemistry unremarkable with the echocardiogram as discussed in the history of present illness. CT scan was discussed in the history of present illness. CBC is unremarkable. Urinalysis with no urinary tract infection. IMPRESSION: 1. Syncopal episode. 2. Acute altered mental status on chronic dementia. 3. Hypertension. 4. History of coronary artery disease with no acute complications. PLAN: The patient was observed overnight with no recurrence of confusion or syncope. There are no arrhythmias on the diagnostic cardiac sonographer. The patient returns to his baseline status. The description of what happened almost sounds like he had a seizure and a post ictal state. There was no evidence of seizures on his observation here. Therefore, the patient will be discharged in stable condition back to the [facility]. We will resume home medications, activity as tolerated and diet as per usual diet. #[id number] [facility]
[2020-01-27] MEDS ORDERED: ATORVASTATIN 20 MG TAB PO SCH (21:00)
[2020-01-27] MEDS ORDERED: DONEPEZIL HCL 5 MG TAB PO SCH (21:00)
[2020-01-27] MEDS ORDERED: TAMSULOSIN 0.4 MG CAP PO SCH (21:00)
== END 2020-01-27 12:20 ==
LOC: ER 20:43 → MS 20:44 → UNDOADMOB 01-27 01:17 → UNDODISOB 01-27 12:20
PROVIDERS: ADMIT Nurse Practitioner Acute Care; ATTEND Nurse Practitioner
DX: R55 Syncope and collapse (principal); R41.82 Altered mental status, unspecified; F03.90 Unspecified dementia, unspecified severity, without behavioral disturbance, psychotic disturbance, mood disturbance, and anxiety; R07.9 Chest pain, unspecified; I10 Essential (primary) hypertension; I25.10 Atherosclerotic heart disease of native coronary artery without angina pectoris; I25.2 Old myocardial infarction; I45.10 Unspecified right bundle-branch block; J32.4 Chronic pansinusitis; Z20.828 Contact with and (suspected) exposure to other viral communicable diseases; Z79.02 Long term (current) use of antithrombotics/antiplatelets; Z79.82 Long term (current) use of aspirin; Z79.899 Other long term (current) drug therapy; Z95.1 Presence of aortocoronary bypass graft; Z85.46 Personal history of malignant neoplasm of prostate; Z87.442 Personal history of urinary calculi
CPT/HCPCS: 96365; 96375; 96372; J1200; J1630; J2060; J7030; J1650; J3475; 85379; 82553 ×3; 80053; 80061; 36415; 81001; 85025; 82550 ×3; 83735; 85730; 85610; 84484 ×3; 83880; 83605; 71045; 70450; 71275; 94760; 99285; 93306; 93005 ×2; G0378; 87635

== ENCOUNTER → 2020-02-13 | Outpatient (CLI) | payer SELFPAY | LOC: GT 20:37 | PROVIDERS: ATTEND Family Medicine | DX: B34.2 Coronavirus infection, unspecified (principal); R71.8 Other abnormality of red blood cells; R09.02 Hypoxemia ==

== ENCOUNTER → 2020-04-23 | Outpatient (CLI) | payer MEDICARE, OTHER | LOC: GT 01:50 | PROVIDERS: ATTEND Family Medicine | DX: E78.5 Hyperlipidemia, unspecified (principal); C61 Malignant neoplasm of prostate; I10 Essential (primary) hypertension; I25.10 Atherosclerotic heart disease of native coronary artery without angina pectoris; M62.81 Muscle weakness (generalized) | CPT/HCPCS: 80048; 80061; 80076; 82550; 85025; G0103 ==